=== PATIENT | male | born 1955 | race Caucasian/White ===

== ENCOUNTER 2016-08-29 05:44 | Day surgery (SDC) | payer OTHER ==
[~2016-08-29 05:44] MED LIST: GLIPIZIDE5 MG; GLUCOPHAGE500 MG; LIPITOR20 MG; PROAIR HFA8.5 GM
[2016-08-29] MEDS ORDERED: ASPIRIN EC650 MG PO (06:09)
--- NOTE | 2016-08-29 12:27 | EKG ---
[facility] [address] [place], [place] [address] Signed Normal sinus rhythm Indeterminate axis ST \T\ T wave abnormality, consider inferior ischemia ST \T\ T wave abnormality, consider anterolateral ischemia Prolonged QT Abnormal ECG No previous ECGs available Confirmed by GLADYS PALACIO MD ([id number] on 08/29/2016 12:27:05 PM Electronically Signed By: GLADYS PALACIO MD 08/29/16 1227 PATIENT NAME: MEHDI FOWLER Electrocardiogram DATE OF : 51 PHYSICIAN: GLADYS PALACIO MD REPORT #: [id number] REPORT IS CONFIDENTIAL AND NOT TO BE RELEASED WITHOUT AUTHORIZATION
[2016-08-29] MEDS ORDERED: NORCO 5-325 TA1 EACH (13:26)
== END 2016-08-29 14:10 | disposition home or self-care (01) ==
LOC: OPS 05:44 → DS 05:44
PROVIDERS: Dentist General Practice
PROC: 0CDWXZ1 Extraction of Upper Tooth, Multiple, External Approach (ICD-10-PCS; 2016-08-29)
PROC: 0CDXXZ1 Extraction of Lower Tooth, Multiple, External Approach (ICD-10-PCS; principal; 2016-08-29 06:45)
DX: K08.9 Disorder of teeth and supporting structures, unspecified (principal); E11.9 Type 2 diabetes mellitus without complications; E78.5 Hyperlipidemia, unspecified; I10 Essential (primary) hypertension; E78.00 Pure hypercholesterolemia, unspecified; I27.2 Other secondary pulmonary hypertension; I25.10 Atherosclerotic heart disease of native coronary artery without angina pectoris; Z88.0 Allergy status to penicillin; Z98.41 Cataract extraction status, right eye; Z98.42 Cataract extraction status, left eye; Z79.899 Other long term (current) drug therapy
CPT/HCPCS: 00170; 70310; 93005; 93010; J2250; J3010; J7120